=== PATIENT | female | born 1985 | race African-American/Black ===

== ENCOUNTER 2016-12-19 19:20 | Emergency (ER) | payer OTHER ==
[~2016-12-19] VITALS: Ht 149.9 cm; Wt 99.8 kg
[2016-12-19 20:22] LABS: ABSOLUTE NEUTROPHILS 4.3 thou/uL (1.4-8.2); BASOPHILS 0.3 % (0.0-2.0); EOSINOPHILS 0.8 % (0.0-3.0); HEMATOCRIT 35.5 % (37.0-47.0); HEMOGLOBIN 11.9 gm/dL (12.0-15.0); LYMPHOCYTES 31.4 % (24.0-44.0); MCH 28.3 pg (26.0-34.0); MCHC 33.5 g/dL (28.0-37.0); MCV 84.5 fL (80.0-100.0); MONOCYTES 7.4 % (1.0-8.0); PLATELET COUNT 244 thou/uL (150-400); POLYS 60.1 % (36.0-66.0); RDW 13.5 % (10.5-14.5); WBC 7.2 thou/uL (4.0-11.0)
[2016-12-19 20:23] LABS: MANUAL DIFF NO
[2016-12-19] MEDS ORDERED: PHENERGAN 25 MG25 M1 PO (22:32)
[2016-12-19 22:42] VITALS: BP 120/64
[2016-12-23 14:11] LABS: CHLAMYDIA TRACHOMATIS-PCR Negative (Negative); NEISSERIA GONORRHEA-PCR Negative (Negative)
== END 2016-12-19 22:43 | disposition home or self-care (01) ==
LOC: ER 19:20
PROVIDERS: Physician Assistant
DX: O20.0 Threatened abortion (principal); Z3A.08 8 weeks gestation of pregnancy

== ENCOUNTER 2018-05-26 10:09 | Emergency (ER) | payer BC ==
[~2018-05-26] VITALS: Ht 149.9 cm; Wt 54.4 kg
[~2018-05-26 10:09] MED LIST: PHENERGAN 25 MG25 M1 PO
[2018-05-26] MEDS ORDERED: TIZANIDINE HCL4 MG PO (11:56)
[2018-05-26 12:21] VITALS: BP 110/67
== END 2018-05-26 12:23 | disposition home or self-care (01) ==
LOC: ER 10:09
DX: S00.83XA Contusion of other part of head, initial encounter (principal); Z88.6 Allergy status to analgesic agent; Z98.890 Other specified postprocedural states; W00.9XXA Unspecified fall due to ice and snow, initial encounter; Y93.89 Activity, other specified; Y92.89 Other specified places as the place of occurrence of the external cause; Y99.8 Other external cause status

== ENCOUNTER 2018-11-05 20:04 | Emergency (ER) | payer BC ==
[~2018-11-05] VITALS: Ht 149.9 cm; Wt 98.9 kg
[~2018-11-05 20:04] MED LIST changes: +TIZANIDINE HCL4 MG PO
[2018-11-05 22:28] LABS: ABSOLUTE NEUTROPHILS 4.5 thou/uL (1.4-8.2); BASOPHILS 0.4 % (0.0-2.0); EOSINOPHILS 0.9 % (0.0-3.0); HEMATOCRIT 35.8 % (37.0-47.0); HEMOGLOBIN 11.6 gm/dL (12.0-15.0); LYMPHOCYTES 32.7 % (24.0-44.0); MCH 25.9 pg (26.0-34.0); MCHC 32.4 g/dL (28.0-37.0); MCV 79.8 fL (80.0-100.0); MONOCYTES 6.6 % (1.0-8.0); PLATELET COUNT 263 thou/uL (150-400); POLYS 59.4 % (36.0-66.0); RBC 4.49 mil/uL (4.20-5.00); RDW 15.2 % (10.5-14.5); WBC 7.6 thou/uL (4.0-11.0)
[2018-11-05 22:37] LABS: ANION GAP 8 mmol/L (7-16); BUN 9 mg/dL (7-18); CALCIUM 9.2 mg/dL (8.5-10.1); CHLORIDE 107 mmol/L (98-107); CO2 27 mmol/L (21-32); CREATININE 0.8 mg/dL (0.6-1.0); GLUCOSE 108 mg/dL (74-106); POTASSIUM 3.5 mmol/L (3.5-5.1); SODIUM 142 mmol/L (136-145)
[2018-11-05 22:47] LABS: ALBUMIN 3.5 g/dL (3.4-5.0); DIRECT BILIRUBIN < 0.1 mg/dL (<0.1-0.3); LIPASE 125 U/L (73-393); SGOT 19 U/L (15-37); SGPT 18 U/L (30-65); TOTAL BILIRUBIN 0.2 mg/dL (<0.1-1.0); TOTAL PROTEIN 7.5 g/dL (6.4-8.2); TROPONIN-I <0.06 ng/mL (<0.06)
[2018-11-06 00:23] VITALS: BP 134/79
--- NOTE | 2018-11-07 18:18 | EKG ---
[address] [place] [address] ELECTROCARDIOGRAM REPORT Name: EDEN COELLO Room #: [facility]#: [id number] ������������������ Admission: 11/05/18 ������������������ Attend Phys: Discharge: 11/06/18 ������������������ Date of : 85 Report #: [id number] ����������������������������������������������������������������� [id number] THIS REPORT FOR: //name// [facility] ED Test Date: 2018-11-05 Test Time: 20:12:53 Pat Name: EDEN COELLO Department: Room: Gender: F Station Installer And Repairer: Jayde JAUREGUI : 1985 Requested By: Emma Ruiz Order Number: [id number] MD: Scott Lo Measurements Intervals [place] Rate: 88 P: 51 RI: 149 QRS: 40 QRSD: 85 T: 75 QT: 341 QTc: 413 Interpretive Statements Sinus rhythm Nonspecific ST and T wave abnormality No previous ECG available for comparison Electronically Signed On 11-07-2018 18:18:22 CDT by Scott Lo [email or web address] ��������������������������������������������� <ELECTRONICALLY SIGNED> ���������������������������������������� By: Scott Lo MD, [facility] ��������������������������������������������� 11/07/18 1818 11 11 Scott Lo MD, FACC /EPI
== END 2018-11-06 00:23 | disposition home or self-care (01) ==
LOC: ER 20:04
PROVIDERS: Emergency Medicine
DX: R07.89 Other chest pain (principal); Z88.6 Allergy status to analgesic agent; Z98.890 Other specified postprocedural states; Z90.49 Acquired absence of other specified parts of digestive tract; Z90.710 Acquired absence of both cervix and uterus

== ENCOUNTER 2018-11-09 08:18 | Emergency (ER) | payer BC ==
[~2018-11-09] VITALS: Ht 149.9 cm; Wt 98.9 kg
[2018-11-09 09:10] LABS: ABSOLUTE NEUTROPHILS 3.4 thou/uL (1.4-8.2); BASOPHILS 0.4 % (0.0-2.0); EOSINOPHILS 1.1 % (0.0-3.0); HEMATOCRIT 36.9 % (37.0-47.0); HEMOGLOBIN 11.9 gm/dL (12.0-15.0); LYMPHOCYTES 28.6 % (24.0-44.0); MCH 25.5 pg (26.0-34.0); MCHC 32.2 g/dL (28.0-37.0); MCV 79.3 fL (80.0-100.0); MONOCYTES 6.9 % (1.0-8.0); PLATELET COUNT 256 thou/uL (150-400); RBC 4.65 mil/uL (4.20-5.00); WBC 5.4 thou/uL (4.0-11.0)
[2018-11-09 09:17] LABS: ANION GAP 9 mmol/L (7-16); BUN 10 mg/dL (7-18); CALCIUM 9.2 mg/dL (8.5-10.1); CHLORIDE 104 mmol/L (98-107); CO2 27 mmol/L (21-32); CREATININE 0.8 mg/dL (0.6-1.0); GLUCOSE 99 mg/dL (74-106); POTASSIUM 3.6 mmol/L (3.5-5.1); SODIUM 140 mmol/L (136-145)
[2018-11-09 09:26] LABS: ALBUMIN 3.8 g/dL (3.4-5.0); SGOT 17 U/L (15-37); SGPT 21 U/L (30-65); TOTAL BILIRUBIN 0.4 mg/dL (<0.1-1.0); TOTAL PROTEIN 7.8 g/dL (6.4-8.2); TROPONIN-I <0.06 ng/mL (<0.06)
[2018-11-09 10:33] VITALS: BP 117/66
--- NOTE | 2018-11-10 08:02 | EKG ---
[address] [address] [address] [facility] [place] [address] ELECTROCARDIOGRAM REPORT Name: EDEN COELLO Room #: [facility]#: [id number] ������������������ Admission: 11/09/18 ������������������ Attend Phys: Discharge: 11/09/18 ������������������ Date of : 85 Report #: [id number] ����������������������������������������������������������������� [id number] THIS REPORT FOR: //name// [facility] ED Test Date: 2018-11-09 Test Time: 08:37:03 Pat Name: EDEN COELLO Department: Room: Gender: F Recenterer: lisa : 1985 Requested By: Miguel So Order Number: [id number] MD: Scott Lo Measurements Intervals [place] Rate: 78 P: 60 MD: 151 QRS: 42 QRSD: 84 T: 64 QT: 365 QTc: 416 Interpretive Statements Sinus rhythm Borderline T abnormalities, anterior leads Compared to ECG 11/05/2018 20:12:53 No significant change was found Electronically Signed On 11-10-2018 8:02:36 CDT by Scott Lo [email or web address] ��������������������������������������������� <ELECTRONICALLY SIGNED> ���������������������������������������� By: Scott Lo MD, [facility] ��������������������������������������������� 11/10/18 0802 6 Scott Lo MD, FAC /EPI
== END 2018-11-09 10:33 | disposition home or self-care (01) ==
LOC: ER 08:18
PROVIDERS: Emergency Medicine
DX: R07.89 Other chest pain (principal); Z88.6 Allergy status to analgesic agent; Z98.890 Other specified postprocedural states; Z90.49 Acquired absence of other specified parts of digestive tract; Z90.710 Acquired absence of both cervix and uterus

== ENCOUNTER 2019-06-26 20:52 | Emergency (ER) | payer OTHER ==
[~2019-06-26] VITALS: Ht 149.9 cm; Wt 99.8 kg
[2019-06-26 21:23] LABS: ABSOLUTE NEUTROPHILS 3.8 thou/uL (1.4-8.2); BASOPHILS 0.5 % (0.0-2.0); EOSINOPHILS 1.1 % (0.0-3.0); HEMATOCRIT 37.3 % (37.0-47.0); LYMPHOCYTES 38.3 % (24.0-44.0); MCH 26.1 pg (26.0-34.0); MCHC 32.2 g/dL (28.0-37.0); MCV 81.1 fL (80.0-100.0); MONOCYTES 5.6 % (1.0-8.0); PLATELET COUNT 292 thou/uL (150-400); POLYS 54.5 % (36.0-66.0); RDW 15.5 % (10.5-14.5)
[2019-06-26 21:27] LABS: ANION GAP 7 mmol/L (7-16); BUN 11 mg/dL (7-18); CALCIUM 9.5 mg/dL (8.5-10.1); CHLORIDE 104 mmol/L (98-107); CO2 28 mmol/L (21-32); CREATININE 0.9 mg/dL (0.6-1.0); GLUCOSE 99 mg/dL (74-106); POTASSIUM 3.4 mmol/L (3.5-5.1); SODIUM 139 mmol/L (136-145)
[2019-06-26 21:36] LABS: TROPONIN-I <0.06 ng/mL (<0.06)
[2019-06-26 22:07] VITALS: BP 133/50
--- NOTE | 2019-06-27 08:59 | EKG ---
[facility] [place] [address] ELECTROCARDIOGRAM REPORT Name: EDEN COELLO Room #: [facility]#: [id number] Admission: 06/26/19 Attend Phys: Discharge: 06/26/19 Date of : 85 Report #: [id number] THIS REPORT FOR: cc: Berto Romero MD, Michael D. MD Couchonnal, Luis F. MD ~ THIS REPORT FOR: //name// [facility] ED Test Date: 2019-06-26 Test Time: 20:54:33 Pat Name: EDEN COELLO Department: Room: Gender: F Real Estate Underwriter: LULÚ : 1985 Requested By: Berto Bello Order Number: [id number] : Cesar Sharif Measurements Intervals [place] Rate: 75 P: 76 NC: 160 QRS: 37 QRSD: 83 T: 50 QT: 363 QTc: 406 Interpretive Statements Sinus rhythm Borderline T abnormalities, anterior leads Compared to ECG 11/09/2018 08:37:03 No significant changes Electronically Signed On 06-27-2019 8:58:38 CDT by Cesar Sharif [email or web address] <ELECTRONICALLY SIGNED> By: Cesar Sharif MD 06/27/19857 53 53 Cesar Sharif MD /EPI
== END 2019-06-26 22:13 | disposition home or self-care (01) ==
LOC: ER 20:52
PROVIDERS: Emergency Medicine
DX: R07.9 Chest pain, unspecified (principal); M79.602 Pain in left arm